=== PATIENT | female | born 1985 | race African-American/Black ===

== ENCOUNTER 2019-01-19 08:45 | Emergency (ER) | payer MEDICARE, OTHER ==
[2019-01-19] MEDS ORDERED: Tetracaine 0.5% OPHTH SOLN/PF 4 ML BOT ONE (08:58)
[2019-01-19] MEDS ORDERED: Neomycin-Polymyxin-Hc 7.5 ML BOT ONE (08:58)
== END 2019-01-19 09:08 | disposition home or self-care (01) ==
LOC: BURERS 08:45
DX: H01.003 Unspecified blepharitis right eye, unspecified eyelid (principal); E11.9 Type 2 diabetes mellitus without complications; I10 Essential (primary) hypertension; F17.210 Nicotine dependence, cigarettes, uncomplicated
CPT/HCPCS: 99282

== ENCOUNTER 2019-03-10 13:39 | Emergency (ER) | payer MEDICARE, MEDICAID ==
[2019-03-10] MEDS ORDERED: Acetaminophen 500 MG TAB ONE (14:19)
== END 2019-03-10 14:50 | disposition home or self-care (01) ==
LOC: BURERS 13:39
DX: J06.9 Acute upper respiratory infection, unspecified (principal); E11.9 Type 2 diabetes mellitus without complications; I11.0 Hypertensive heart disease with heart failure; I50.9 Heart failure, unspecified; F17.210 Nicotine dependence, cigarettes, uncomplicated; Z79.899 Other long term (current) drug therapy; Z79.4 Long term (current) use of insulin
CPT/HCPCS: 87804; 99283

== ENCOUNTER 2021-01-23 10:54 | Emergency (ER) | payer MEDICARE, OTHER ==
[2021-01-23] MEDS ORDERED: Lidocaine 1% PF 5 ML VIAL ONE (11:20)
== END 2021-01-23 11:45 | disposition home or self-care (01) ==
LOC: BURERS 10:54
DX: K04.7 Periapical abscess without sinus (principal); N61.1 Abscess of the breast and nipple; Z79.899 Other long term (current) drug therapy; Z79.4 Long term (current) use of insulin; Z79.84 Long term (current) use of oral hypoglycemic drugs; I50.9 Heart failure, unspecified; I11.0 Hypertensive heart disease with heart failure; E11.9 Type 2 diabetes mellitus without complications; F17.210 Nicotine dependence, cigarettes, uncomplicated
CPT/HCPCS: 10060